=== PATIENT | female | born 2000 | race Two or more races ===

== ENCOUNTER 2021-10-07 02:30 | Inpatient (IN) | payer OTHER ==
[~2021-10-07] VITALS: Ht 167.6 cm; Wt 48.1 kg
[2021-10-07] MEDS ORDERED: SODIUM CHLORIDE 0.9% 1,000 ML IV ONE (03:15)
[2021-10-07 03:42] LABS: BASOPHILS % (AUTO) 1.1 % (0.0-2.0); EOSINOPHILS % (AUTO) 0.1 % (1.0-6.0); HEMATOCRIT 44.6 % (36-46); HEMOGLOBIN 15.1 g/dL (12.0-16.0); LYMPHOCYTES # (AUTO) 1.3 K/uL (1.0-4.8); LYMPHOCYTES % (AUTO) 24.2 % (22.0-44.0); MEAN CORPUSCULAR HEMOGLOBIN 28.5 pg (26.0-34.0); MEAN CORPUSCULAR HGB CONC 33.9 G/dL (31.0-37.0); MEAN CORPUSCULAR VOLUME 84 fL (80-100); MONOCYTES # (AUTO) 0.4 K/uL (0.1-1.0); MONOCYTES % (AUTO) 8.1 % (2.0-9.0); NEUTROPHILS # (AUTO) 3.6 K/uL (1.8-7.7); NEUTROPHILS % (AUTO) 66.5 % (40.0-70.0); PLATELET COUNT (AUTO) 296 K/uL (150-450); RED CELL DISTRIBUTION WIDTH 13.6 % (11.5-14.5)
[2021-10-07 03:58] LABS: ALANINE AMINOTRANSFERASE 29 U/L (12-78); ALBUMIN 4.6 g/dL (3.4-5.0); ALKALINE PHOSPHATASE 64 U/L (46-116); ANION GAP 19 mmol/L (8-16); ASPARTATE AMINOTRANSFERASE 18 U/L (15-37); BILIRUBIN,TOTAL 1.3 mg/dL (0.1-1.0); CALCIUM, TOTAL 9.4 mg/dL (8.8-10.5); CARBON DIOXIDE 21 mmol/L (22-29); CHLORIDE 99 mmol/L (98-107); CREATININE 0.82 mg/dL (0.60-1.30); GLUCOSE,RANDOM 114 mg/dL (70-110); SODIUM SERUM 139 mmol/L (136-145); TOTAL PROTEIN, SERUM 7.9 g/dL (6.4-8.2); UREA NITROGEN, BLOOD 14 mg/dL (7-18)
[2021-10-07 04:01] LABS: HCG,QUANTITATIVE < 1 mIU/mL (0-6)
[2021-10-07 04:02] LABS: GLOMERULAR FILTR. RATE CALC > 60 mL/min (>60)
[2021-10-07 04:05] LABS: ACETAMINOPHEN 87 mcg/mL (10-30); POTASSIUM 2.7 mmol/L (3.5-5.1)
[2021-10-07 04:06] LABS: SALICYLATE 0.8 mg/dL (2.8-20.0)
[2021-10-07] MEDS ORDERED: WATER IV ONE ×4 (04:15→09:45)
[2021-10-07] MEDS ORDERED: ACETYLCYSTEINE IV ONE ×4 (04:15→09:45)
[2021-10-07] MEDS ORDERED: DEXTROSE 5% IV ONE ×4 (04:15→09:45)
[2021-10-07] MEDS: POTASSIUM CHLORIDE 20 MEQ ER TABLET PO ONE ×2 (04:36→05:04)
[2021-10-07 04:44] LABS: COVID AG,FIA SOURCE NASAL SWAB
[2021-10-07] MEDS ORDERED: METOCLOPRAMIDE HCL 5 MG/ML 2 ML VIAL IVP ONE ×2 (04:45)
[2021-10-07] MEDS ORDERED: MAGNESIUM SULFATE 4 GM/WATER 100 ML IV PRN (05:30)
[2021-10-07] MEDS ORDERED: MAGNESIUM SULFATE 2 GM/WATER 50 ML IV PRN (05:30)
[2021-10-07] MEDS ORDERED: RINGERS SOLUTION,LACTATED 1,000 ML IV SCH (05:30)
[2021-10-07] MEDS ORDERED: POTASSIUM CHLORIDE 10% 40 MEQ/30 ML LIQUID UDCUP PO ONE (05:30)
[2021-10-07] MEDS ORDERED: POTASSIUM CHLORIDE 40 MEQ in SODIUM CHLORIDE 0.45% 1,000 ML IV SCH (06:00)
[2021-10-07 06:01] LABS: INR 1.1 (0.9-1.1); PROTHROMBIN TIME 11.9 SEC (9.4-11.6)
[2021-10-07] MEDS ORDERED: PANTOPRAZOLE SODIUM 40 MG/VIAL IVP ONE (06:45)
[2021-10-07] MEDS ORDERED: PROCHLORPERAZINE EDISYLATE 5 MG/ML 2 ML VIAL IVP ONE (06:45)
[2021-10-07] MEDS ORDERED: PANTOPRAZOLE SODIUM 80 MG in SODIUM CHLORIDE 0.9% 100 ML IV SCH (07:00)
[2021-10-07] MEDS ORDERED: HEPARIN SODIUM,PORCINE 5,000 UNITS/ML VIAL SQ SCH (08:00)
[2021-10-07 09:30] LABS: ALBUMIN 3.5 g/dL (3.4-5.0); BILIRUBIN,DIRECT 0.3 mg/dL (0.00-0.20); BILIRUBIN,TOTAL 1.4 mg/dL (0.1-1.0); TOTAL PROTEIN, SERUM 6.5 g/dL (6.4-8.2)
[2021-10-07 10:51] VITALS: BP 122/74
[2021-10-07 11:00] VITALS: BP 122/74
[2021-10-07] MEDS ORDERED: FentaNYL CITRATE PF 100 MCG/2 ML VIAL ONE ×2 (11:30→11:31)
[2021-10-07] MEDS ORDERED: MIDAZOLAM HCL 5 MG/ML VIAL ONE ×2 (11:31)
[2021-10-07] MEDS ORDERED: METOCLOPRAMIDE HCL 5 MG/ML 2 ML VIAL IVP PRN (12:00)
[2021-10-07] MEDS ORDERED: SODIUM CHLORIDE 0.9% 10 ML ONE (12:01)
[2021-10-07] MEDS ORDERED: SODIUM CHLORIDE 0.9% 1,000 ML ONE (12:14)
[2021-10-07] MEDS ORDERED: SODIUM CHLORIDE 0.9% 1,000 ML IV SCH (12:15)
[2021-10-07 15:15] LABS: HEMATOCRIT 38.8 % (36-46); HEMOGLOBIN 13.1 g/dL (12.0-16.0)
[2021-10-07 15:31] LABS: ALBUMIN 3.5 g/dL (3.4-5.0); BILIRUBIN,DIRECT 0.3 mg/dL (0.00-0.20); BILIRUBIN,TOTAL 1.7 mg/dL (0.1-1.0); TOTAL PROTEIN, SERUM 6.2 g/dL (6.4-8.2)
[2021-10-07 15:34] VITALS: BP 116/76
[2021-10-07] MEDS: MAGNESIUM OXIDE 400 MG TABLET PO PRN ×2 (16:54→21:07)
[2021-10-07] MEDS: SODIUM CHLORIDE 0.9% 1,000 ML IV SCH (16:55)
[2021-10-07 18:23] LABS: ALBUMIN 3.5 g/dL (3.4-5.0); BILIRUBIN,DIRECT 0.4 mg/dL (0.00-0.20); BILIRUBIN,TOTAL 2.1 mg/dL (0.1-1.0); TOTAL PROTEIN, SERUM 6.4 g/dL (6.4-8.2)
[2021-10-07] MEDS ORDERED: DiphenhydrAMINE HCL 50 MG/ML VIAL ONE (18:39)
[2021-10-07] MEDS ORDERED: LORazepam 2 MG/ML VIAL IVP ONE ×2 (18:45→19:30)
[2021-10-07] MEDS ORDERED: DiphenhydrAMINE HCL 50 MG/ML VIAL IVP ONE (18:45)
[2021-10-07 20:07] VITALS: BP 137/83
[2021-10-07] MEDS: PANTOPRAZOLE SODIUM 40 MG/VIAL IVP SCH (21:07)
[2021-10-07 23:45] VITALS: BP 126/76
[2021-10-08] MEDS: MAGNESIUM OXIDE 400 MG TABLET PO PRN ×2 (03:44→15:12)
[2021-10-08 03:59] VITALS: BP 116/66
[2021-10-08] MEDS: SODIUM CHLORIDE 0.9% 1,000 ML IV SCH ×2 (06:05→20:45)
[2021-10-08 06:25] LABS: EOSINOPHILS % (AUTO) 3.5 % (1.0-6.0); HEMATOCRIT 38.2 % (36-46); HEMOGLOBIN 13.1 g/dL (12.0-16.0); LYMPHOCYTES # (AUTO) 1.8 K/uL (1.0-4.8); LYMPHOCYTES % (AUTO) 32.6 % (22.0-44.0); MEAN CORPUSCULAR HEMOGLOBIN 28.7 pg (26.0-34.0); MEAN CORPUSCULAR HGB CONC 34.3 G/dL (31.0-37.0); MEAN CORPUSCULAR VOLUME 84 fL (80-100); MONOCYTES # (AUTO) 0.4 K/uL (0.1-1.0); MONOCYTES % (AUTO) 7.6 % (2.0-9.0); NEUTROPHILS % (AUTO) 55.3 % (40.0-70.0); PLATELET COUNT (AUTO) 221 K/uL (150-450); RED BLOOD CELL COUNT(AUTO) 4.57 MIL/uL (4.00-5.20); RED CELL DISTRIBUTION WIDTH 13.5 % (11.5-14.5)
[2021-10-08 06:39] LABS: INR 1.2 (0.9-1.1); PROTHROMBIN TIME 12.6 SEC (9.4-11.6)
[2021-10-08 06:44] LABS: ALANINE AMINOTRANSFERASE 33 U/L (12-78); ALBUMIN 3.5 g/dL (3.4-5.0); ALKALINE PHOSPHATASE 47 U/L (46-116); ANION GAP 14 mmol/L (8-16); ASPARTATE AMINOTRANSFERASE 23 U/L (15-37); BILIRUBIN,TOTAL 1.7 mg/dL (0.1-1.0); CALCIUM, TOTAL 8.2 mg/dL (8.8-10.5); CARBON DIOXIDE 20 mmol/L (22-29); CHLORIDE 105 mmol/L (98-107); CREATININE 0.65 mg/dL (0.60-1.30); GLUCOSE,RANDOM 69 mg/dL (70-110); SODIUM SERUM 139 mmol/L (136-145); UREA NITROGEN, BLOOD 2 mg/dL (7-18)
[2021-10-08 06:45] LABS: GLOMERULAR FILTR. RATE CALC > 60 mL/min (>60)
[2021-10-08 08:55] VITALS: BP 108/73
[2021-10-08] MEDS: PANTOPRAZOLE SODIUM 40 MG/VIAL IVP SCH ×2 (09:00→20:27)
[2021-10-08 12:03] VITALS: BP 128/81
[2021-10-08] MEDS ORDERED: POTASSIUM CHL 10 MEQ/WATER 50 ML IV PRN (13:15)
[2021-10-08] MEDS ORDERED: POTASSIUM CHLORIDE 20 MEQ ER TABLET PO PRN (13:15)
[2021-10-08 16:04] VITALS: BP 134/68
[2021-10-08 18:01] VITALS: BP 149/87
[2021-10-08 20:10] VITALS: BP 133/74
[2021-10-09 05:30] VITALS: BP 129/78
[2021-10-09] MEDS: SODIUM CHLORIDE 0.9% 1,000 ML IV SCH (08:45)
[2021-10-09] MEDS: PANTOPRAZOLE SODIUM 40 MG/VIAL IVP SCH (08:54)
[2021-10-09] MEDS ORDERED: PANT-31 PO (16:05)
[2021-10-09 20:42] VITALS: BP 124/84
== END 2021-10-09 20:45 | DRG 817 ==
LOC: EMS 02:31 → 5S 06:02
PROVIDERS: ADMIT Internal Medicine; ATTEND Internal Medicine
DX: T39.1X2A Poisoning by 4-Aminophenol derivatives, intentional self-harm, initial encounter (principal); G92.9 Unspecified toxic encephalopathy; K92.2 Gastrointestinal hemorrhage, unspecified; E83.42 Hypomagnesemia; E87.6 Hypokalemia; F99 Mental disorder, not otherwise specified; Z20.822 Contact with and (suspected) exposure to COVID-19; Z88.8 Allergy status to other drugs, medicaments and biological substances; Y92.89 Other specified places as the place of occurrence of the external cause
CPT/HCPCS: 71045; 80053; 80183; 80337; 82040; 82248; 82271; 83735; 84132; 84702; 85014; 85018; 85025; 85610; 85730; 93005; 99291; C9113; G0480; G0481; J0132; J0780; J1200; J2060; J2250; J2765; J3010; J3480; J7030; J7050; J7060; 36415-L1; 36415-TC

== ENCOUNTER 2021-10-09 15:50 | Inpatient (IN) | payer MEDICAID ==
[~2021-10-09] VITALS: Ht 167.6 cm; Wt 48.5 kg
[2021-10-09] MEDS ORDERED: PANT-31 PO (16:05)
[2021-10-09] MEDS ORDERED: HALOPERIDOL 5 MG TABLET PO PRN (22:00)
[2021-10-09] MEDS ORDERED: LORazepam 2 MG TABLET PO PRN (22:00)
[2021-10-09 22:37] VITALS: BP 145/90
[2021-10-09] MEDS ORDERED: PNEUMOCOCCAL VACCINE POLYVALENT 0.5 ML VIAL [PPSV23] IM. ONE (23:45)
[2021-10-10] MEDS: ZOLPIDEM TARTRATE 10 MG TABLET PO PRN ×2 (00:33→21:40)
[2021-10-10 07:15] LABS: BASOPHILS % (AUTO) 0.9 % (0.0-2.0); EOSINOPHILS % (AUTO) 3.8 % (1.0-6.0); HEMATOCRIT 43.7 % (36-46); HEMOGLOBIN 14.8 g/dL (12.0-16.0); LYMPHOCYTES # (AUTO) 2.9 K/uL (1.0-4.8); LYMPHOCYTES % (AUTO) 48.2 % (22.0-44.0); MEAN CORPUSCULAR HEMOGLOBIN 28.4 pg (26.0-34.0); MEAN CORPUSCULAR HGB CONC 33.9 G/dL (31.0-37.0); MEAN CORPUSCULAR VOLUME 84 fL (80-100); MONOCYTES # (AUTO) 0.6 K/uL (0.1-1.0); MONOCYTES % (AUTO) 9.6 % (2.0-9.0); NEUTROPHILS # (AUTO) 2.2 K/uL (1.8-7.7); NEUTROPHILS % (AUTO) 37.5 % (40.0-70.0); PLATELET COUNT (AUTO) 254 K/uL (150-450); RED BLOOD CELL COUNT(AUTO) 5.21 MIL/uL (4.00-5.20); RED CELL DISTRIBUTION WIDTH 13.5 % (11.5-14.5)
[2021-10-10 07:42] LABS: ALANINE AMINOTRANSFERASE 48 U/L (12-78); ALBUMIN 4.1 g/dL (3.4-5.0); ALKALINE PHOSPHATASE 61 U/L (46-116); ANION GAP 9 mmol/L (8-16); ASPARTATE AMINOTRANSFERASE 16 U/L (15-37); BILIRUBIN,TOTAL 0.9 mg/dL (0.1-1.0); CALCIUM, TOTAL 9.3 mg/dL (8.8-10.5); CARBON DIOXIDE 28 mmol/L (22-29); CHLORIDE 106 mmol/L (98-107); CHOL/HDL RATIO 3.1 (3.9-5.7); CHOLESTEROL 120 mg/dL (131-200); CREATININE 0.71 mg/dL (0.60-1.30); FREE T4 (FREE THYROXINE) 1.42 ng/dL (0.76-1.46); GLUCOSE,RANDOM 91 mg/dL (70-110); HDL CHOLESTEROL 39 mg/dL (40-60); LDL CHOL (CALC.) 69 mg/dL (0-130); POTASSIUM 3.9 mmol/L (3.5-5.1); SODIUM SERUM 143 mmol/L (136-145); THYROID STIMULATING HORMONE 1.58 uIU/mL (0.36-3.74); TOTAL PROTEIN, SERUM 7.1 g/dL (6.4-8.2); TRIGLYCERIDES 58 mg/dL (15-150); UREA NITROGEN, BLOOD 7 mg/dL (7-18)
[2021-10-10 07:49] LABS: HEMOGLOBIN A1C 4.7 % (3.8-5.6)
[2021-10-10 07:51] LABS: GLOMERULAR FILTR. RATE CALC > 60 mL/min (>60)
[2021-10-10 08:13] VITALS: BP 117/70
[2021-10-10 20:25] VITALS: BP 121/77
[2021-10-10] MEDS ORDERED: ACETAMINOPHEN 325 MG TABLET PO PRN (22:30)
[2021-10-10] MEDS ORDERED: CloNIDine HCL 0.1 MG TABLET PO PRN (22:30)
[2021-10-10] MEDS ORDERED: ALBUTEROL SULFATE HFA 90 MCG/PUFF 8 GM INHALER IH PRN (22:30)
[2021-10-10] MEDS ORDERED: LOPERAMIDE HCL 2 MG CAPSULE PO PRN (22:30)
[2021-10-10] MEDS ORDERED: OMEPRAZOLE 20 MG CAPSULE PO PRN (22:30)
[2021-10-10] MEDS ORDERED: MAG HYDROX/AL HYDROX/SIMETH ES 30 ML SUSPENSION UDCUP PO PRN (22:30)
[2021-10-10] MEDS ORDERED: ONDANSETRON HCL 4 MG TABLET PO PRN (22:30)
[2021-10-10] MEDS ORDERED: IBUPROFEN 600 MG TABLET PO PRN (22:30)
[2021-10-10] MEDS ORDERED: BENZOCAINE/MENTHOL LOZENGE PO PRN (22:30)
[2021-10-10] MEDS ORDERED: DOCUSATE SODIUM 100 MG CAPSULE PO PRN (22:30)
[2021-10-10] MEDS ORDERED: MAGNESIUM HYDROXIDE SUSPENSION 30 ML UDCUP PO PRN (22:30)
[2021-10-10] MEDS ORDERED: PETROLATUM,WHITE 28 GM JELLY TP PRN (22:30)
[2021-10-10] MEDS ORDERED: BACITRACIN 28 GM OINTMENT TP PRN (22:30)
[2021-10-11 08:00] VITALS: BP 135/96
[2021-10-11] MEDS: DIVALPROEX SODIUM 500 MG DR TABLET PO SCH ×2 (08:16→20:14)
[2021-10-11] MEDS: LITHIUM CARBONATE 300 MG CAPSULE PO SCH ×2 (08:16→20:14)
[2021-10-11] MEDS: CITALOPRAM HYDROBROMIDE 20 MG TABLET PO SCH (08:16)
[2021-10-11 21:07] VITALS: BP 125/83
[2021-10-11] MEDS: ZOLPIDEM TARTRATE 10 MG TABLET PO PRN (21:32)
[2021-10-12 08:27] VITALS: BP 107/60
[2021-10-12] MEDS: LITHIUM CARBONATE 300 MG CAPSULE PO SCH ×2 (08:44→20:17)
[2021-10-12] MEDS: CITALOPRAM HYDROBROMIDE 20 MG TABLET PO SCH (08:44)
[2021-10-12] MEDS: DIVALPROEX SODIUM 500 MG DR TABLET PO SCH ×2 (08:44→20:17)
[2021-10-12 20:30] VITALS: BP 108/70
[2021-10-12] MEDS: ZOLPIDEM TARTRATE 10 MG TABLET PO PRN (21:37)
[2021-10-13 08:36] VITALS: BP 116/66
[2021-10-13] MEDS: LITHIUM CARBONATE 300 MG CAPSULE PO SCH ×2 (08:42→20:35)
[2021-10-13] MEDS: DIVALPROEX SODIUM 500 MG DR TABLET PO SCH ×2 (08:43→20:35)
[2021-10-13] MEDS: CITALOPRAM HYDROBROMIDE 20 MG TABLET PO SCH (08:43)
[2021-10-13] MEDS: MULTIVITAMINS WITH MINERALS, THERAPEUTIC TABLET PO SCH (08:55)
[2021-10-13] MEDS ORDERED: DIVA-112 PO (11:57)
[2021-10-13] MEDS ORDERED: LITH300C3 PO (11:57)
[2021-10-13] MEDS ORDERED: CITA-144 PO (11:57)
[2021-10-13 20:34] VITALS: BP 100/61
[2021-10-13] MEDS: ZOLPIDEM TARTRATE 10 MG TABLET PO PRN (20:34)
[2021-10-14 08:46] VITALS: BP 114/71
[2021-10-14] MEDS: LITHIUM CARBONATE 300 MG CAPSULE PO SCH (09:00)
[2021-10-14] MEDS: CITALOPRAM HYDROBROMIDE 20 MG TABLET PO SCH (09:04)
[2021-10-14] MEDS: DIVALPROEX SODIUM 500 MG DR TABLET PO SCH (09:04)
[2021-10-14] MEDS: MULTIVITAMINS WITH MINERALS, THERAPEUTIC TABLET PO SCH (09:07)
== END 2021-10-14 11:39 | disposition home or self-care (01) | DRG 754 ==
LOC: B3A 21:23 → B2S 10-12 20:45
PROVIDERS: ADMIT Psychiatry & Neurology Psychiatry; ATTEND Psychiatry & Neurology Psychiatry
DX: F32.9 Major depressive disorder, single episode, unspecified (principal); F41.9 Anxiety disorder, unspecified; F94.0 Selective mutism; J45.909 Unspecified asthma, uncomplicated; G47.00 Insomnia, unspecified; K59.00 Constipation, unspecified; Z79.899 Other long term (current) drug therapy; Z88.1 Allergy status to other antibiotic agents
CPT/HCPCS: 80053; 80061; 83036; 84439; 84443; 85025; 87081